=== PATIENT | male | born 1960 | race Caucasian/White ===

== ENCOUNTER → 2016-08-27 | Outpatient (CLI) | payer OTHER ==
[~2016-08-27] MED LIST: ALBUTEROL17 GM IH; ASPIRIN81 MG PO; ATIVAN PO; CLARITIN10 M2 PO; DICLOFENAC PO; FELDENE10 MG PO; FLEXERIL10 MG PO; GABAPENTIN800 MG PO; HYDROCHLOROTH12.5 MG PO; LIPITOR20 MG PO; LIPITOR40 MG PO; MEDROL4 MG/DOSE- PO; MORGIDOX100 MG PO; PEN-VEE K PO; PRILOSEC20 M1 PO; TOPAMAX PO; ZOLOFT100 MG PO; ZYRTEC10 M2 PO
== END | disposition home or self-care (01) ==
LOC: CRC 08-25 08:00
DX: J43.9 Emphysema, unspecified (principal); J41.0 Simple chronic bronchitis; G47.33 Obstructive sleep apnea (adult) (pediatric); I63.20 Cerebral infarction due to unspecified occlusion or stenosis of unspecified precerebral arteries; Z72.0 Tobacco use
CPT/HCPCS: 94060; 94726; 94729